=== PATIENT | male | born 1990 | race American Indian/Alaskan Native ===

== ENCOUNTER 2016-12-29 21:23 | Emergency (ER) | payer MEDICAID ==
[2016-12-30] MEDS ORDERED: NORCO 5/325 PO ONE (02:36)
--- NOTE | 2016-12-30 02:39 | Emergency Department Report ---
ED Extremity Problem HPI - General Chief complaint: Back Pain/Injury Stated complaint: BACK PAIN, HOLE IN BOTTOM OF LT FOOT Time Seen by Provider: 12/30/16 02:30 Source: patient Mode of arrival: Ambulatory Limitations: No Limitations - History of Present Illness Initial comments: 26-year-old male past medical history chronic back pain presents with complaint of acute on chronic upper back pain. Denies any paresthesias weakness shortness of breath chills fever or rash. Patient also complaining of a lesion to the bottom of his left foot. Patient denies any new trauma denies any fevers chills denies any. When drainage from foot. States he noticed a pimple- like lesion on the bottom of his left heel region. Has experienced this for approximately 8 months. Patient states it is uncomfortable to put pressure on left heel because of this MD Complaint: extremity pain Onset/Timin -: month(s) Location: left History of Same: No Radiation: none Severity scale (0 -10): 5 Quality: aching Consistency: intermittent Worsens with: nothing Associated Symptoms: denies other symptoms - Related Data Home Medications Medication Instructions Recorded Confirmed Last Taken Promethazine /Codeine 5 ml PO Q6H PRN 05/12/14 05/17/14 05/16/14 [Phenergan/Codeine 6.25-10 mg/5 ml] Previous Rx's Medication Instructions Recorded Last Taken Type Albuterol Sulfate [Ventolin HFA] 2 puff IH Q4H PRN #1 hfa.aer.ad 05/12/14 Rx Amoxicillin [Trimox CAP] 500 mg PO Q8H #30 capsule 05/12/14 05/16/14 Rx Loratadine [Claritin] 10 mg PO DAILY #30 tablet 05/12/14 05/16/14 Rx Promethazine /Codeine 5 ml PO Q6H PRN #120 ml 05/12/14 05/16/14 Rx [Phenergan/Codeine 6.25-10 mg/5 ml] predniSONE [Deltasone] 40 mg PO QDAY #10 tab 05/12/14 05/16/14 Rx Docusate Sodium [Colace] 100 mg PO BID #20 capsule 05/17/14 Unknown Rx Promethazine /Codeine 5 ml PO Q6H PRN #60 ml 05/17/14 Unknown Rx [Phenergan/Codeine 6.25-10 mg/5 ml] Cyclobenzaprine HCl [Flexeril 5mg] 5 mg PO TID #30 tablet 10/12/14 Unknown Rx traMADol [Ultram 50 MG tab] 50 mg PO Q6HR PRN #20 tablet 10/12/14 Unknown Rx Naproxen [Naprosyn TAB] 500 mg PO BID PRN #20 tablet 12/30/16 Unknown Rx Salicylic Acid [Dr Barraza's Clear 1 each TP QDAY #1 adh..patch 12/30/16 Unknown Rx Away] Allergies Allergy/AdvReac Type Severity Reaction Status Date / Time No Known Allergies Allergy Unverified 05/12/14 07:31 ED Review of Systems ROS: Stated complaint: BACK PAIN, HOLE IN BOTTOM OF LT FOOT Other details as noted in HPI Constitutional: denies: chills, fever Eyes: denies: eye pain, eye discharge, vision change ENT: denies: ear pain, throat pain Respiratory: denies: cough, shortness of breath, wheezing Cardiovascular: denies: chest pain, palpitations Endocrine: no symptoms reported Gastrointestinal: denies: abdominal pain, nausea, diarrhea Genitourinary: denies: urgency, dysuria Musculoskeletal: as per HPI, back pain (patient years of chronic upper back pain ), other (chronic left foot pain). denies: joint swelling, arthralgia Skin: denies: rash, lesions Neurological: denies: headache, weakness, paresthesias Psychiatric: denies: anxiety, depression Hematological/Lymphatic: denies: easy bleeding, easy bruising ED Past Medical Hx - Past Medical History Previous Medical History?: Yes Additional medical history: bronchitis - Surgical History Past Surgical History?: No - Social History Smoking Status: Current Every Day Smoker Substance Use Type: None - Medications Home Medications: Home Medications Medication Instructions Recorded Confirmed Last Taken Type Albuterol Sulfate [Ventolin HFA] 2 puff IH Q4H PRN #1 hfa.aer.ad 05/12/1405/16/14 Rx Amoxicillin [Trimox CAP] 500 mg PO Q8H #30 capsule 05/12/14 05/17/14 05/16/14 Rx Loratadine [Claritin] 10 mg PO DAILY #30 tablet 05/12/14 05/17/14 05/16/14 Rx Promethazine /Codeine 5 ml PO Q6H PRN 05/12/14 05/17/14 05/16/14 History [Phenergan/Codeine 6.25-10 mg/5 ml] Promethazine /Codeine 5 ml PO Q6H PRN #120 ml 05/12/14 05/17/14 05/16/14 Rx [Phenergan/Codeine 6.25-10 mg/5 ml] predniSONE [Deltasone] 40 mg PO QDAY #10 tab 05/12/14 05/17/14 05/16/14 Rx Docusate Sodium [Colace] 100 mg PO BID #20 capsule 05/17/14 Unknown Rx Promethazine /Codeine 5 ml PO Q6H PRN #60 ml 05/17/14 Unknown Rx [Phenergan/Codeine 6.25-10 mg/5 ml] Cyclobenzaprine HCl [Flexeril 5mg] 5 mg PO TID #30 tablet 10/12/14 Unknown Rx traMADol [Ultram 50 MG tab] 50 mg PO Q6HR PRN #20 tablet 10/12/14 Unknown Rx Naproxen [Naprosyn TAB] 500 mg PO BID PRN #20 tablet 12/30/16 Unknown Rx Salicylic Acid [Dr Barraza's Clear 1 each TP QDAY #1 adh..patch 12/30/16 Unknown Rx Away] ED Physical Exam - General Limitations: No Limitations General appearance: alert, in no apparent distress - Head Head exam: Present: atraumatic, normocephalic - Eye Eye exam: Present: normal appearance, PERRL, EOMI - ENT ENT exam: Present: mucous membranes moist - Neck Neck exam: Present: normal inspection, full ROM - Respiratory Respiratory exam: Present: normal lung sounds bilaterally. Absent: respiratory distress - Cardiovascular Cardiovascular Exam: Present: regular rate, normal rhythm. Absent: systolic murmur, diastolic murmur, rubs, gallop - GI/Abdominal GI/Abdominal exam: Present: soft, normal bowel sounds - Rectal Rectal exam: Present: deferred - Extremities Exam Extremities exam: Present: normal inspection - Expanded Lower Extremity Exam Left Foot/Toe exam: Present: full ROM, tenderness (patient has visible plantar wart directly below left plantar fasciitis/heel region. No visible signs of cellulitis no fluctuance no erythema) Neuro vascular tendon exam: Present: no vascular compromise (distal dorsalis pedis and posterior tibial pulses intact) Gait: Positive: antalgic 1 - Plantar wart with surrounding callus here - Back Exam Back exam: Present: normal inspection - Neurological Exam Neurological exam: Present: alert, oriented X3, CN II-XII intact, normal gait - Psychiatric Psychiatric exam: Present: normal affect, normal mood - Skin Skin exam: Present: warm, dry, intact, normal color. Absent: rash ED Course Vital Signs 12/29/16 12/30/16 21:35 03:02 Temperature 98.2 F 98.4 F Pulse Rate 90 67 Respiratory 20 20 Rate Blood Pressure 121/78 Blood Pressure 134/86 [Right] O2 Sat by Pulse 99 100 Oximetry ED Medical Decision Making - Medical Decision Making A/P: Chronic back pain, left plantar warts 1-primary care and podiatry follow-up 2-topical wart medication 3-naproxen when necessary Critical care attestation.: If time is entered above; I have spent that time in minutes in the direct care of this critically ill patient, excluding procedure time. ED Disposition Clinical Impression: Plantar wart of left foot Chronic back pain Qualifiers: Back pain location: thoracic back pain Back pain laterality: bilateral Qualified Code(s): M54.6 - Pain in thoracic spine Disposition: DC- TO HOME OR SELFCARE Is pt being admited?: No Does the pt Need Aspirin: No Condition: Stable Instructions: Plantar Wart (ED), Chronic Back Pain (ED), Back Pain (ED) Prescriptions: Naproxen [Naprosyn TAB] 500 mg PO BID PRN #20 tablet PRN Reason: Pain Salicylic Acid [Dr Barraza's Clear Away] 1 each TP QDAY #1 adh..patch Referrals: HEBER PAYNE DPM [Staff Physician] - 3-5 Days [facility] [Provider Group] - 3-5 Days [facility] [Outside] - 3-5 Days Forms: Accompanied Note, Work/School Release Form(ED) Time of Disposition: 02:36
[2016-12-30 03:04] VITALS: BP 134/86
== END 2016-12-30 03:02 | disposition home or self-care (01) ==
LOC: ED 21:23
DX: B07.0 Plantar wart (principal); M54.6 Pain in thoracic spine; F17.200 Nicotine dependence, unspecified, uncomplicated
CPT/HCPCS: 99282